=== PATIENT | male | born 1935 | race Caucasian/White ===

== ENCOUNTER 2019-12-23 08:31 | Emergency (ER) | payer MEDICARE, MEDICAID ==
[~2019-12-23] VITALS: Ht 185.4 cm; Wt 63.0 kg
[~2019-12-23 08:31] MED LIST: DEXL30CA3 PO; FLO0.4C PO; LISI10TA4 PO; LOVA20TA2 PO
[2019-12-23] MEDS ORDERED: CefTRIAXone 2gm/D5W 50ml 50 ML IV ONE (08:40)
[2019-12-23] MEDS ORDERED: normal saline 1000ML IV soln IV ONE (08:40)
[2019-12-23] MEDS ORDERED: azithromycin/NS 500mg/250ml 250 ML IV ONE (08:40)
[2019-12-23] MEDS ORDERED: ondansetron/PF 4mg/2ml inj IV ONE (08:40)
[2019-12-23 09:44] LABS: BASOPHILS # (AUTO) 0.1 X10'3 (0-0.2); BASOPHILS % (AUTO) 0.6 % (0-1); EOSINOPHILS # (AUTO) 0.2 X10'3 (0-0.9); EOSINOPHILS % (AUTO) 1.3 % (0-6); HEMATOCRIT 38.9 % (42.0-52.0); HEMOGLOBIN 12.9 g/dl (14.0-17.9); LYMPHOCYTES % (AUTO) 15.5 % (21-51); MEAN CORPUSCULAR HEMOGLOBIN 31.1 PG (27.0-31.0); MEAN CORPUSCULAR HGB CONC 33.1 g/dL (33.0-36.5); MEAN CORPUSCULAR VOLUME 93.9 FL (78-98); MEAN PLATELET VOLUME 9.4 FL (7.4-10.4); MONOCYTES # (AUTO) 0.5 X10'3 (0-0.9); MONOCYTES % (AUTO) 3.8 % (2-12); NEUTROPHILS # (AUTO) 10.3 X10'3 (1.8-7.7); NEUTROPHILS % (AUTO) 78.8 % (42-75); PLATELET COUNT 185 X10'3 (140-440); RED BLOOD COUNT 4.14 X10'6 (4.70-6.10); RED CELL DISTRIBUTION WIDTH 13.4 % (11.5-14.5)
[2019-12-23 10:07] LABS: ALANINE AMINOTRANSFERASE 21 U/L (12-78); ALBUMIN 3.9 G/DL (3.4-5.0); ALBUMIN/GLOBULIN RATIO 1.3 (1.1-1.5); ALKALINE PHOSPHATASE 89 IU/L (46-116); ANION GAP 13 (8-16); ASPARTATE AMINO TRANSFERASE 20 U/L (10-37); BILIRUBIN,TOTAL 0.6 MG/DL (0.1-1.0); BLOOD UREA NITROGEN 21 MG/DL (7-18); BUN/CREATININE RATIO 22.6 (5.4-32.0); CALCIUM 8.9 MG/DL (8.5-10.1); CHLORIDE 107 MMOL/L (99-107); CREATININE 0.93 MG/DL (0.60-1.10); GLUCOSE 183 MG/DL (70-104); POTASSIUM 3.3 MMOL/L (3.5-5.1); SODIUM 142 MMOL/L (135-145); TOTAL CARBON DIOXIDE 22.2 MMOL/L (24-32); TOTAL PROTEIN 6.8 G/DL (6.4-8.2); eGFR 77 ML/MIN
--- NOTE | 2019-12-23 10:30 | NUR ---
Attempted straight cath at this time, patient refused due to extensive pain trying to get catheter past prostate, patient requested to stand up at edge of bed. Patient denies dizziness while sitting at edge of bed and standing next to bed, still unable to urinate, patient escorted to bathroom, gait steady and balanced. No signs of distress noted, returned safely to bed.
[2019-12-23 11:53] LABS: CLARITY,URINE CLOUDY (Clear); COLOR,URINE AMBER (Yellow); GLUCOSE, URINE NEGATIVE (Neg); KETONES,URINE TRACE mg/dl (Neg); LEUKOCYTE ESTERASE ,URINE NEGATIVE (Neg); NITRITES, URINE NEGATIVE (Neg); OCCULT BLOOD,URINE LARGE (Neg); PH,URINE 5.5 (4.8-8.0); PROTEIN,URINE 30 mg/dl (Neg); UROBILINOGEN,URINE 0.2 E.U/dL (0.2-1.0)
[2019-12-23 11:59] LABS: UA COLLECTION TYPE CLN CATCH MIDSTREAM
[2019-12-23 12:07] LABS: BACTERIA,URINE FEW /HPF (Neg); RBC,URINE TNTC /HPF (0-2); SQUAMOUS EPITHELIAL CELL,UR FEW /LPF (FEW); TRANSITIONAL EPI CELLS,URINE FEW /HPF
[2019-12-23 12:08] LABS: HYALINE CASTS 0-3 /LPF (NEGATIVE); MUCUS STRANDS MODERATE /LPF (Neg)
[2019-12-23] MEDS ORDERED: ONDA4TAB6 PO (12:42)
[2019-12-23] MEDS ORDERED: CEPH250T PO (12:42)
[2019-12-23 13:11] VITALS: BP 154/76
== END 2019-12-23 13:12 | disposition home or self-care (01) ==
LOC: ER 08:31
DX: N39.0 Urinary tract infection, site not specified (principal); Z20.828 Contact with and (suspected) exposure to other viral communicable diseases; R11.2 Nausea with vomiting, unspecified; E86.0 Dehydration; F12.90 Cannabis use, unspecified, uncomplicated; Z90.49 Acquired absence of other specified parts of digestive tract; Z98.890 Other specified postprocedural states; Z79.82 Long term (current) use of aspirin; Z79.899 Other long term (current) drug therapy
CPT/HCPCS: 36415; 71045; 74176; 80053; 81001; 83605; 84145; 85025; 85610; 87040; 87088; 87635; 93005; 96365; 96368; 96375; 99285; J0456; J0696; J2405; J7030

== ENCOUNTER 2020-08-21 07:47 | Emergency (ER) | payer MEDICARE, MEDICAID ==
[~2020-08-21] VITALS: Ht 177.8 cm; Wt 68.2 kg
[~2020-08-21 07:47] MED LIST changes: +LISI10TA27 PO; -LISI10TA4 PO; +ONDA4TAB6 PO
[2020-08-21] MEDS ORDERED: ondansetron/PF 4mg/2ml inj IV ONE ×2 (08:00→12:20)
[2020-08-21] MEDS ORDERED: normal saline 1000ml 1,000 ML IV ONE ×2 (08:00→09:10)
[2020-08-21 08:52] LABS: BASOPHILS # (AUTO) 0.1 X10'3 (0-0.2); EOSINOPHILS # (AUTO) 0.2 X10'3 (0-0.9); EOSINOPHILS % (AUTO) 1.6 % (0-6); HEMOGLOBIN 13.7 g/dl (14.0-17.9); LYMPHOCYTES # (AUTO) 2.3 X10'3 (1.1-4.8); LYMPHOCYTES % (AUTO) 15.5 % (21-51); MEAN CORPUSCULAR HEMOGLOBIN 31.1 PG (27.0-31.0); MEAN CORPUSCULAR HGB CONC 33.3 g/dL (33.0-36.5); MEAN CORPUSCULAR VOLUME 93.2 FL (78-98); MEAN PLATELET VOLUME 9.8 FL (7.4-10.4); MONOCYTES # (AUTO) 1.1 X10'3 (0-0.9); MONOCYTES % (AUTO) 7.4 % (2-12); NEUTROPHILS # (AUTO) 10.9 X10'3 (1.8-7.7); NEUTROPHILS % (AUTO) 74.5 % (42-75); PLATELET COUNT 231 X10'3 (140-440); RED CELL DISTRIBUTION WIDTH 12.8 % (11.5-14.5); WHITE BLOOD COUNT 14.6 X10'3 (4.5-11.0)
[2020-08-21 08:59] LABS: ALANINE AMINOTRANSFERASE 24 U/L (12-78); ALBUMIN/GLOBULIN RATIO 1.1 (1.1-1.5); ALKALINE PHOSPHATASE 116 IU/L (46-116); ASPARTATE AMINO TRANSFERASE 25 U/L (10-37); BILIRUBIN,TOTAL 0.6 MG/DL (0.1-1.0); BLOOD UREA NITROGEN 19 MG/DL (7-18); BUN/CREATININE RATIO 20.4 (5.4-32.0); CALCIUM 9.5 MG/DL (8.5-10.1); CHLORIDE 103 MMOL/L (99-107); CREATININE 0.93 MG/DL (0.60-1.10); GLUCOSE 220 MG/DL (70-104); TOTAL CARBON DIOXIDE 22.2 MMOL/L (24-32); TOTAL PROTEIN 7.6 G/DL (6.4-8.2); eGFR 77 ML/MIN
[2020-08-21 09:07] LABS: TROPONIN I < 0.04 NG/ML (0.0-0.05)
[2020-08-21 09:08] LABS: ANION GAP 16 (8-16); POTASSIUM 3.7 MMOL/L (3.5-5.1); SODIUM 141 MMOL/L (135-145)
[2020-08-21 09:09] LABS: ETHANOL < 0.010 GM/DL (0.0-0.010)
--- NOTE | 2020-08-21 09:35 | NUR ---
Discussed pt's hx of bph, turp and known uretheral scarring w/ edmd susan who ok'd cancellation of UA.
[2020-08-21] MEDS ORDERED: ONDA4TAB6 PO (11:39)
--- NOTE | 2020-08-21 11:42 | NUR ---
full pericare provided as pt was being readied for dc. he became dizzy and began dry heaving once again. [facility] notified. DC being held, further dx to occur.
[2020-08-21] MEDS ORDERED: proCHLORperazine 10 MG/2 ml inj IV ONE (12:20)
[2020-08-21] MEDS ORDERED: mag hydrox/Alum hydrox/simeth 30ml oral suspension PO ONE (12:20)
[2020-08-21] MEDS ORDERED: famotidine/PF 10 mg/ml inj IV ONE (12:20)
[2020-08-21] MEDS ORDERED: pantoprazole 40 MG vial IV ONE (12:20)
[2020-08-21] MEDS ORDERED: ondansetron 4mg rapidly disintigrating tab PO ONE (13:05)
--- NOTE | 2020-08-21 16:10 | NUR ---
Pt drank ~ 200ml water without issue. Denies nausea or discomfort @ this itme. GIULIA Dumont notified.
[2020-08-21 17:16] VITALS: BP 174/77
== END 2020-08-21 17:20 | disposition home or self-care (01) ==
LOC: ER 07:47
DX: R11.2 Nausea with vomiting, unspecified (principal); R51.9 Headache, unspecified; J32.9 Chronic sinusitis, unspecified; R19.7 Diarrhea, unspecified; R06.02 Shortness of breath; Z20.822 Contact with and (suspected) exposure to COVID-19; F12.90 Cannabis use, unspecified, uncomplicated; Z90.49 Acquired absence of other specified parts of digestive tract; Z72.89 Other problems related to lifestyle; Z79.899 Other long term (current) drug therapy
CPT/HCPCS: 36415; 70450; 71045; 80053; 80320; 83605; 83880; 84145; 84484; 85025; 87040; 87635; 93005; 96361; 96374; 96375; 99285; C9113; C9803; J0780; J2405; J3490; J7030

== ENCOUNTER 2022-03-24 12:47 | Emergency (ER) | payer MEDICARE, MEDICAID ==
[~2022-03-24] VITALS: Ht 177.8 cm; Wt 54.5 kg
[2022-03-24 12:50] VITALS: BP 169/72
--- NOTE | 2022-03-24 12:57 | NUR ---
NO STRAIGHT CATH OR DIAZ CATH PER PT REQUEST DUE TO LOT OF SCAR TISSUE.
[2022-03-24 13:32] LABS: BASOPHILS % (AUTO) 0.2 % (0-1); EOSINOPHILS # (AUTO) 0.1 X10'3 (0-0.9); EOSINOPHILS % (AUTO) 0.6 % (0-6); HEMATOCRIT 36.7 % (42.0-52.0); HEMOGLOBIN 12.4 g/dl (14.0-17.9); LYMPHOCYTES # (AUTO) 2.1 X10'3 (1.1-4.8); LYMPHOCYTES % (AUTO) 16.8 % (21-51); MEAN CORPUSCULAR HEMOGLOBIN 31.6 PG (27.0-31.0); MEAN CORPUSCULAR HGB CONC 33.8 g/dL (33.0-36.5); MEAN CORPUSCULAR VOLUME 93.6 FL (78-98); MEAN PLATELET VOLUME 8.8 FL (7.4-10.4); MONOCYTES # (AUTO) 1.2 X10'3 (0-0.9); MONOCYTES % (AUTO) 9.3 % (2-12); NEUTROPHILS # (AUTO) 9.1 X10'3 (1.8-7.7); NEUTROPHILS % (AUTO) 73.1 % (42-75); PLATELET COUNT 216 X10'3 (140-440); RED BLOOD COUNT 3.92 X10'6 (4.70-6.10); RED CELL DISTRIBUTION WIDTH 13.5 % (11.5-14.5); WHITE BLOOD COUNT 12.5 X10'3 (4.5-11.0)
[2022-03-24 13:43] LABS: ALANINE AMINOTRANSFERASE 18 U/L (12-78); ALBUMIN 3.7 G/DL (3.4-5.0); ALBUMIN/GLOBULIN RATIO 1.2 (1.1-1.5); ALKALINE PHOSPHATASE 94 IU/L (46-116); ANION GAP 15 (8-16); ASPARTATE AMINO TRANSFERASE 17 U/L (10-37); BLOOD UREA NITROGEN 15 MG/DL (7-18); BUN/CREATININE RATIO 20.8 (5.4-32.0); CALCIUM 8.9 MG/DL (8.5-10.1); CHLORIDE 102 MMOL/L (99-107); CREATININE 0.72 MG/DL (0.60-1.10); GLUCOSE 119 MG/DL (70-104); LIPASE < 50 U/L (73-393); SODIUM 140 MMOL/L (135-145); TOTAL CARBON DIOXIDE 23.1 MMOL/L (24-32); TOTAL PROTEIN 6.9 G/DL (6.4-8.2); eGFR > 90 ML/MIN
[2022-03-24 13:58] LABS: POTASSIUM 2.4 MMOL/L (3.5-5.1)
== END 2022-03-24 16:16 | disposition left against medical advice (07) ==
LOC: ER 12:47
DX: R11.2 Nausea with vomiting, unspecified (principal); Z53.21 Procedure and treatment not carried out due to patient leaving prior to being seen by health care provider
CPT/HCPCS: 36415; 80053; 83690; 85025; 93005